=== PATIENT | female | born 1980 | race Caucasian/White ===

== ENCOUNTER 2019-01-27 10:55 | Emergency (ER) | payer OTHER ==
[~2019-01-27] VITALS: Ht 157.5 cm; Wt 90.7 kg
[2019-01-27 11:05] VITALS: BP_SYST 128
--- NOTE | 2019-01-27 12:20 | NUR ---
Pt to [facility] 2
--- NOTE | 2019-01-27 12:45 | NUR ---
ER Dr. Kruger at bedside examining patient.
[2019-01-27 12:54] VITALS: BP_SYST 128
--- NOTE | 2019-01-27 12:54 | NUR ---
Patient given written and verbal discharge instructions and verbalizes understanding. ER MD discussed with patient the results and treatment provided. Patient in stable condition. ID arm band removed. Rx of Promethazine DM given. Patient educated on pain management and to follow up with PMD. Pain Scale 0/10. Opportunity for questions provided and answered. Medication side effect fact sheet provided.
== END 2019-01-27 12:54 | disposition home or self-care (01) ==
LOC: SED 10:55
DX: J06.9 Acute upper respiratory infection, unspecified (principal)
CPT/HCPCS: 81025; 99283